=== PATIENT | female | born 1995 | race Caucasian/White ===

== ENCOUNTER 2021-07-20 08:41 | Emergency (ER) | payer SELFPAY ==
[2021-07-20] VITALS (18 sets, daily range): BP systolic 111–133; BP diastolic 72–79; PULSE 60–90; RESP 13–28; TEMP 36.4; O2SAT 95–100
--- NOTE | ~2021-07-20 | CT_ITS ---
EXAMINATION: CT abdomen pelvis w con DATE: 07/20/2021 11:42 INDICATION: Abdominal pain. Bloody stools. TECHNIQUE: Computed tomography (CT) of the abdomen and pelvis was performed with 75 cc Omnipaque 300 intravenous contrast. The dose-length product was 195.22 mGy-cm. Automated exposure control and itera tive reconstruction technique were employed. COMPARISON: None. FINDINGS: Lung bases are unremarkable. No significant pleural or pericardial effusion. Heart size is normal. The liver, spleen, pancreas, adrenal glands and kidneys are unremarkable. Gallbladder is present. A s mall amount of free fluid in the pelvis. No significant vascular abnormality. No lymphadenopathy. No free air or free fluid. Nonobstructive bowel gas pattern. IMPRESSION: 1. Moderate free fluid in the pelvis, likely physiologic. Reviewed, dictated and finalized at location B.
[2021-07-20 09:46] LABS: Basophils Absolute Auto 0.1 K/mm3 (0.0-0.1); Basophils Percent Auto 0.6 % (0.2-1.2); Eosinophils Absolute Auto 0.3 K/mm3 (0-0.3); Eosinophils Percent Auto 4.3 % (0-4.4); Hematocrit 39.3 % (37.0-47.0); Hemoglobin 12.8 g/dL (12.0-15.0); Immature Granulocyte Absolute 0.03 K/mm3 (0.00-0.031); Immature Granulocyte Percent A 0.4 % (0-0.5); Lymphocytes Absolute Auto 1.78 K/mm3 (0.9-3.2); Lymphocytes Percent Auto 22.6 % (18.3-44.2); Mean Corpuscular HGB Conc 32.6 g/dl (32-36); Mean Corpuscular Hemoglobin 26.4 pg (26-34); Mean Platelet Volume 9.5 fl (7.4-10.4); Monocytes Absolute Auto 0.5 K/mm3 (0.1-0.6); Neutrophils Absolute Auto 5.2 K/mm3 (1.3-6.7); Neutrophils Percent Auto 66.1 % (45.5-73.1); Platelet Count Result 342 k/mm3 (150-375); Red Blood Count 4.85 M/mm3 (4.2-5.4); White Blood Count 7.9 K/mm3 (4.5-10.0)
[2021-07-20 09:54] LABS: Add Urine Microscopic? YES; Appearance Urine Clear (Clear); Bilirubin Urine Negative (Negative); Blood Urine Trace-lysed (Negative); Color Urine Yellow (Yellow); Glucose Urine UA Negative (Negative); Ketones Urine Negative (Negative); Leukocyte Esterase Ur Negative LEU/UL (Negative); Nitrate Urine Negative (Negative); Protein Urine Negative (Negative); Specific Grav Ur 1.015 (1.001-1.035); Urobilinogen Urine 0.2 mg/dL (<2.0); pH Urine 6.5 (5.0-9.0)
[2021-07-20 09:57] LABS: Alanine Aminotransferase 7 U/L (6-35); Albumin Level 4.5 g/dL (3.5-5.1); Alkaline Phosphatase 88 U/L (38-126); Anion Gap 9 mmol/L (8-16); Aspartate Amino Transferase 23 U/L (14-36); Bilirubin,Total 0.2 mg/dL (0.2-1.3); Blood Urea Nitrogen 11 mg/dL (7-17); Calcium 9.1 mg/dL (8.4-10.2); Carbon Dioxide 22 mmol/L (22-30); Chloride 105 mmol/L (98-107); Estimated CRCL calculation 97 ml/min; Estimated Glomerular Filt Rate > 60; Glucose 87 mg/dL (65-110); Potassium 4.2 mmol/L (3.4-5.0); Sodium 136 mmol/L (137-145)
[2021-07-20 10:03] LABS: Prothrombin Time 13.2 Seconds (11.1-14.7); RBC Urine 0-2 /hpf (0-2); Squamous Epithelial Cell Urine Moderate /hpf (Few); WBC Urine 0-3 /hpf
[2021-07-20 10:04] LABS: Partial Thromboplastin Time 29.6 SECONDS (22.3-36.8)
--- NOTE | 2021-07-20 11:07 | ED.GIBLEED ---
HPI - GI Bleed General Chief complaint: GI Bleed Stated complaint: blood in stool Time Seen by Provider: 07/20/21 10:04 Source: patient Mode of arrival: ambulatory History of Present Illness HPI Narrative: 26-year-old female presents today with complaints of 1 week of blood in her stool. Patient denies diarrhea. States the blood is mixed in with the stool. Patient also endorses umbilical abdominal pain. Patient denies any urinary symptoms, recent travel, or abnormal food intake. Patient denies fevers. Related Data Allergies Allergy/AdvReac Type Severity Reaction Status Date / Time Latex, Natural Rubber Allergy Hives Verified 07/20/21 08:57 Review of Systems Review of Systems: CONSTITUTIONAL: Denies fever, chills, or sweats. EYES: Denies visual changes, redness, or discharge. ENT: Denies rhinorrhea, congestion, sore throat, or otalgia. CARDIOVASCULAR: Denies chest pain, palpitations, or edema. RESPIRATORY: Denies cough or dyspnea. GASTROINTESTINAL: Blood in bowel movement. Increased number of bowel movements daily but not diarrhea. Abdominal pain intermittent. Denies nausea, vomiting, or diarrhea. GENITOURINARY: Denies dysuria or hematuria. SKIN: Denies rash or itching. MUSCULOSKELETAL: Denies back pain, joint pain, or myalgia. NEUROLOGIC: Denies headache, numbness, dizziness, or weakness. PSYCHIATRIC: Denies anxiety or depression. Exam Narrative: GENERAL: Well-appearing, well-nourished, and in no acute distress. HEAD: Normocephalic, atraumatic. EYES: PERRLA and EOMI. ENT: Nares clear, no rhinorrhea or epistaxis. Mucous membranes moist. Oropharynx without tonsillar hypertrophy exudate or other lesions. Bilateral TMs pearly mathis nonbulging NECK: Supple. No adenopathy or masses. No carotid bruits or JVD CHEST: Clear to auscultation. No respiratory distress. No wheezes rales or rhonchi HEART: Regular rate and rhythm. No murmur heard. Normal peripheral pulses. ABDOMEN: Soft, nontender, nondistended, normal active bowel sounds. Occult blood positive. No hemorrhoids seen. EXTREMITIES: Normal range of motion. No edema. SKIN: Warm, dry, no rash. NEURO: No focal deficits. Alert and oriented x3. PSYCH: Normal mood and affect. Course Consultations Consultation #1: DR. Morris consulted and will follow up with patient in office. Date: 07/20/21 Vital Signs Vital signs: Vital Signs Temperature 36.4 C 07/20/21 08:48 Pulse Rate 70 07/20/21 08:48 Respiratory Rate 20 07/20/21 08:48 Blood Pressure 133/79 07/20/21 08:48 Pulse Oximetry 100 07/20/21 08:48 Temperature 36.4 C 07/20/21 08:57 Pulse Rate 79 07/20/21 12:30 Respiratory Rate 24 H 07/20/21 12:30 Blood Pressure 113/72 07/20/21 10:31 Pulse Oximetry 100 07/20/21 12:30 MDM - GI Bleed MDM Narrative Medical decision making narrative: 26-year-old female HPI as noted. Occult blood positive. WBC 7.9, hemoglobin 12.8, sodium 136, creatinine 1.6, GFR greater than 60, potassium 4.2, and urine without signs of infection. CT shows no acute process but did show Moderate free fluid in the pelvis, likely physiologic. Patient with need for follow-up for GI. Dr. Morris was contacted and will follow up with patient as patient. Patient aware to return with any new or worsening symptoms. Differential Diagnosis Differential diagnosis: Likely hemorrhoids, infectious diarrhea, gastritis, Lower gastrointestinal hemorrhage and anal fissure Medical Records Attestation: I reviewed the patient's medical records. Lab Data Attestation: I reviewed the patient's lab results. Result diagrams: 07/20/21 09:33 07/20/21 09:33 Labs: Lab Results 07/20/21 07/20/21 07/20/21 Range/Units 09:32 09:33 09:33 WBC 7.9 (4.5-10.0) K/mm3 RBC 4.85 (4.2-5.4) M/mm3 Hgb 12.8 (12.0-15.0) g/dL Hct 39.3 (37.0-47.0) % MCV 81.0 (80-100) fl MCH 26.4 (26-34) pg MCHC 32.6 (32-36) g/dl RDW 14.0 (11.5-14.5) % Plt Coun
== END 2021-07-20 12:44 | disposition home or self-care (01) ==
PROVIDERS: Emergency Medicine; Emergency Provider Nurse Practitioner Family
DX: K92.1 Melena (principal); R10.33 Periumbilical pain
CPT/HCPCS: 36415; 74177; 80053; 81001; 81025; 85025; 85610; 85730; 86850; 86900; 86901; 99284; Q9967